=== PATIENT | female | born 1965 | race Caucasian/White ===

== ENCOUNTER 2018-03-13 08:56 | Outpatient (CLI) | payer OTHER ==
--- NOTE | 2018-03-13 14:49 | MMO ---
BILATERAL SCREENING MAMMOGRAMS: Date: 03-13-18 This study is interpreted with the assistance of computer aided detection. Comparison: Prior studies obtained from [place] from 10-21-13 and 09-23-13. FINDINGS: Scattered fibroglandular densities are seen in each breast. Punctate benign appearing calcification i s seen in the left breast. There has been interval decrease in number of nodular densities in the lef t breast compared to prior study from 2013. No new dominant mass or suspicious grouping of microcalci fications are seen in either breast. IMPRESSION: BIRADS category 2 - benign findings. Routine annual mammographic screening is recommended. POS: LAMIN
== END 2018-03-13 08:57 | disposition home or self-care (01) ==
LOC: SCSMAMMO 08:56
PROVIDERS: ATTEND Family Medicine
DX: Z12.31 Encounter for screening mammogram for malignant neoplasm of breast (principal)
CPT/HCPCS: 77067

== ENCOUNTER 2019-01-09 09:15 | Outpatient (CLI) | payer OTHER ==
--- NOTE | 2019-01-09 10:20 | ULT ---
PELVIC ULTRASOUND WITH CRABTREE SCALE IMAGING: COMPARISON: No prior comparisons available. FINDINGS: The patient is status post hysterectomy and removal of 1 ovary. There is nonvisualization of either ovary. No free pelvic fluid. No discrete abnormality is evident. IMPRESSION: Nonvisualization of the uterus and adnexa. POS: OFF
== END 2019-01-09 09:16 | disposition home or self-care (01) ==
LOC: BICULT 09:15
PROVIDERS: ATTEND Family Medicine
DX: R10.2 Pelvic and perineal pain (principal)
CPT/HCPCS: 76856